=== PATIENT | male | born 1980 | race Hispanic/Latino ===

== ENCOUNTER 2017-05-16 19:39 | Emergency (ER) | payer MEDICAID, OTHER ==
[2017-05-16 19:39] VITALS: BMI 23.8
[2017-05-16 19:55] VITALS: TEMP 98.2
[2017-05-16] MEDS ORDERED: Sodium Chloride 0.9% 1,000 ML IV ONE (19:57)
[2017-05-16 20:05] LABS: BASO % 0.4 % (0.0-2.0); EOS # 0.1 K/uL (0.0-0.7); EOS % 0.6 % (0.0-4.0); HEMATOCRIT 46.2 % (35.0-51.0); LYMPH # 1.4 K/uL (1.0-4.3); LYMPH % 13.8 % (20.0-40.0); MEAN CELL VOLUME 87.4 fL (80.0-94.0); MEAN CORPUSCULAR HEMOGLOBIN 29.6 pg (27.0-31.0); MEAN CORPUSCULAR HGB CONC 33.9 g/dL (33.0-37.0); MEAN PLATELET VOLUME 9.2 fL (7.2-11.7); MONO # 0.8 K/uL (0.0-0.8); MONO % 7.8 % (0.0-10.0); RED CELL DISTRIBUTION WIDTH 13.3 % (11.5-14.5); WHITE BLOOD COUNT 10.5 K/uL (4.8-10.8)
[2017-05-16 20:27] LABS: CHLORIDE 96 mmol/L (98-107)
[2017-05-16 20:28] LABS: POTASSIUM 3.8 mmol/L (3.6-5.2); SODIUM 133 mmol/L (132-148)
--- NOTE | 2017-05-16 20:28 | C.PDOC ---
History Of Present Illness 36 year old male presents to the ER with a complaint of sharp epigastric pain since yesterday, associated with nausea, vomiting, and diarrhea. Patient has a Hx of IVDA, but has been clean for 3 years. However he expresses concern for having hepatitis and would like to be checked. Patient denies blood in vomit or diarrhea, chest pain, SOB, palpitations, fever, dysuria/hematuria.. Time Seen by Provider: 05/16/17 19:45 Chief Complaint (Nursing): Abdominal Pain History Per: Patient History/Exam Limitations: no limitations Onset/Duration Of Symptoms: Days Current Symptoms Are (Timing): Still Present Location Of Pain/Discomfort: Epigastric Radiation Of Pain To:: None Quality Of Discomfort: Sharp, "Pain" Associated Symptoms: Nausea, Vomiting, Diarrhea. denies: Fever, Chest Pain, Urinary Symptoms, Other (SOB) Exacerbating Factors: None Alleviating Factors: None Past Medical History Reviewed: Historical Data, Nursing Documentation, Vital Signs Vital Signs: Last Vital Signs Temp 98.2 F 05/16/17 19:51 Pulse 83 05/16/17 21:54 Resp 16 05/16/17 21:54 BP 129/85 05/16/17 21:54 Pulse Ox 98 05/16/17 21:54 - Medical History PMH: No Chronic Diseases Surgical History: No Surg Hx - [facility] Procedures APPLICATION OF SPLINT (08/15/14) INJECT/INFUSE NEC (08/03/14) OTHER SKIN & SUBQ I D (11/07/14) REMOV EXT IMMOBILIZATION (10/17/14) Family History: States: No Known Family Hx - Social History Hx Tobacco Use: Yes Hx Alcohol Use: No Hx Substance Use: No (former) - Immunization History Hx Tetanus Toxoid Vaccination: No Hx Influenza Vaccination: No Hx Pneumococcal Vaccination: No Review Of Systems Except As Marked, All Systems Reviewed And Found Negative. Constitutional: Negative for: Fever, Chills Cardiovascular: Negative for: Chest Pain, Palpitations Respiratory: Negative for: Shortness of Breath Gastrointestinal: Positive for: Nausea, Vomiting, Abdominal Pain, Diarrhea Genitourinary: Negative for: Dysuria, Hematuria Physical Exam - Physical Exam Appears: Well, Non-toxic, No Acute Distress Skin: Normal Color, Warm, Dry Eye(s): bilateral: Normal Inspection Oral Mucosa: Moist Cardiovascular: Rhythm Regular Respiratory: Normal Breath Sounds, No Rales, No Rhonchi, No Wheezing Gastrointestinal/Abdominal: Bowel Sounds, Soft, Tenderness (Mild epigastric TTP) , No Guarding, No Rebound, No Other ((-) Choudhury's, (-) McBurney's) Back: No CVA Tenderness Neurological/Psych: Oriented x3 ED Course And Treatment - Laboratory Results Result Diagrams: 05/16/17 20:02 05/16/17 20:02 O2 Sat by Pulse Oximetry: 100 (Room air) Pulse Ox Interpretation: Normal Progress Note: Blood work, UA ordered and reviewed. Patient given IV NS bolus, IV pepcid. Reevaluation Time: 21:45 Reassessment Condition: Improved (Patient reassessed, is resting comfortably and states he feels better. On exam, abdomen is soft and nontender. Blood work shows mild elevation in lipase, otherwise was WNL. Patient denies alcohol abuse or h/o gallstones. (-) Choudhury's on exam. Patient states he feels well and would like to be discharged home. Rxs given for zofran, pepcid and tylenol. Patient instructed to drink plenty of fluids and follow up with GI within 1 week. He understands he should return to ED immediately if his symptoms return/ worsen.) Disposition Counseled Patient/Family Regarding: Studies Performed, Diagnosis, Need For Followup, Rx Given - Disposition Referrals: [facility] [Outside] Alexandra CHARLES,MD Gisela [Medical Doctor] - Disposition: HOME/ ROUTINE Disposition Time: 21:45 Condition: STABLE Additional Instructions: FOLLOW UP IN MEDICAL CLINIC IN 1-2 DAYS, AND WITH GI SPECIALIST WITHIN 1 WEEK DRINK PLENTY OF FLUIDS, AND EAT BLAND DIET RETURN TO ER IMMEDIATELY IF YOUR SYMPTOMS WORSEN Prescriptions: Acetaminophen [Tylenol 325mg tab] 650 mg PO Q6 PRN #30 tab PRN Reason: pain/fever Famotidine [Pepcid] 20 mg PO BID PRN #15 tab PRN Reason: abdominal Ondansetron [Zofran Odt] 4 mg PO Q8 PRN #12 odt PRN Reason: Nausea/Vomiting Instructions: Epigastric Pain (ED) Forms: [facility] (Macedonian) Print Language: ESTONIAN - POA Present On Arrival: None - Clinical Impression Clinical Impression: Elevated lipase, Epigastric abdominal pain - Scribe Statement The provider has reviewed the documentation as recorded by the Scribeula Keenan All medical record entries made by the Lupeibeula were at my direction and personally dictated by me. I have reviewed the chart and agree that the record accurately reflects my personal performance of the history, physical exam, medical decision making, and the department course for this patient. I have also personally directed, reviewed, and agree with the discharge instructions and disposition.
[2017-05-16 20:31] LABS: ALB/GLOB RATIO 1.1 (1.0-2.1); ALKALINE PHOSPHATASE 75 U/L (38-126); ALT/SGPT 44 U/L (21-72); AST/SGOT 23 U/L (17-59); BILIRUBIN,TOTAL 0.7 mg/dL (0.2-1.3); BLOOD UREA NITROGEN 13 mg/dL (9-20); CARBON DIOXIDE 27 mmol/L (22-30); GFR AFRICAN-AMERICAN > 60; GLUCOSE,RANDOM 79 mg/dL (75-110); TOTAL PROTEIN 8.4 g/dL (6.3-8.3)
[2017-05-16 21:55] VITALS: BP 129/85; PULSE 83; RESP 16
[2017-05-17 03:21] VITALS: O2SAT 100
== END 2017-05-16 21:54 | disposition home or self-care (01) ==
LOC: C.ER 19:39
DX: R10.13 Epigastric pain (principal); R74.8 Abnormal levels of other serum enzymes
CPT/HCPCS: 80053; 80074; 83690; 85025; 96361; 96374; 99284; J7040

== ENCOUNTER 2018-05-04 15:56 | Emergency (ER) | payer BC, MEDICAID, OTHER ==
[2018-05-04 15:57] VITALS: BMI 23.8
[2018-05-04 16:02] VITALS: RESP 20
[2018-05-04] MEDS ORDERED: MethylPREDNISolone 40 mg Vial IVP STA (16:36)
[2018-05-04] MEDS ORDERED: DiphenhydrAMINE 50 mg/ml Inj IVP STA (16:36)
[2018-05-04 16:56] LABS: BASO % 0.1 % (0.0-2.0); EOS # 0.3 K/uL (0.0-0.7); EOS % 3.1 % (0.0-4.0); HEMOGLOBIN 14.9 g/dL (12.0-18.0); LYMPH # 1.6 K/uL (1.0-4.3); LYMPH % 15.8 % (20.0-40.0); MEAN CELL VOLUME 87.3 fL (80.0-94.0); MEAN CORPUSCULAR HEMOGLOBIN 29.6 pg (27.0-31.0); MEAN CORPUSCULAR HGB CONC 33.9 g/dL (33.0-37.0); MEAN PLATELET VOLUME 9.2 fL (7.2-11.7); MONO # 0.9 K/uL (0.0-0.8); MONO % 9.1 % (0.0-10.0); NEUT # 7.2 K/uL (1.8-7.0); NEUT % 71.9 % (50.0-75.0); RBC 5.03 Mil/uL (4.40-5.90); RED CELL DISTRIBUTION WIDTH 13.5 % (11.5-14.5)
[2018-05-04] MEDS ORDERED: DiphenhydrAMINE 50 mg/ml Inj ONE (17:02)
[2018-05-04] MEDS ORDERED: ceFAZolin 1 MG in Sodium Chloride 0.9% 50 ML IVPB STA (17:15)
[2018-05-04 17:19] LABS: ALB/GLOB RATIO 1.5 (1.0-2.1); ALBUMIN 4.1 g/dL (3.5-5.0); ALT/SGPT 31 U/L (21-72); AST/SGOT 20 U/L (17-59); BLOOD UREA NITROGEN 16 mg/dL (9-20); CALCIUM 8.9 mg/dl (8.6-10.4); GFR NON-AFRICAN AMERICAN > 60
[2018-05-04] MEDS ORDERED: ceFAZolin IV 1 gm in Dextrose 1 GM/50 ML BAG IVPB ONE (17:24)
--- NOTE | 2018-05-04 17:29 | C.PDOC ---
History Of Present Illness 37 year old male patient presents to the ER with c/o itching, swelling and warmth to his upper right arm. Patient reports this appeared after a bee stung him. Patient denies fever, SOB, wheezing and chills. Time Seen by Provider: 05/04/18 16:11 Chief Complaint (Nursing): Allergic Reaction History Per: Patient History/Exam Limitations: no limitations Onset/Duration Of Symptoms: Hrs Current Symptoms Are (Timing): Still Present Associated Symptoms: Swelling, Itching, Redness Past Medical History Reviewed: Historical Data, Nursing Documentation, Vital Signs Vital Signs: Last Vital Signs Temp 97.8 F 05/04/18 16:00 Pulse 112 H 05/04/18 16:00 Resp 20 05/04/18 16:00 BP 118/75 05/04/18 16:00 Pulse Ox 96 05/04/18 16:00 - [facility] Procedures APPLICATION OF SPLINT (08/15/14) INJECT/INFUSE NEC (08/03/14) OTHER SKIN & SUBQ I D (11/07/14) REMOV EXT IMMOBILIZATION (10/17/14) Family History: States: Unknown Family Hx - Social History Hx Tobacco Use: Yes Hx Alcohol Use: No Hx Substance Use: Yes (not currently) - Immunization History Hx Tetanus Toxoid Vaccination: No Hx Influenza Vaccination: No Hx Pneumococcal Vaccination: No Review Of Systems Constitutional: Negative for: Fever, Chills ENT: Negative for: Mouth Pain, Mouth Swelling, Throat Pain, Throat Swelling Respiratory: Negative for: Shortness of Breath, Wheezing Musculoskeletal: Positive for: Other (itching, swelling and warmth to the right upper arm ) Physical Exam - Physical Exam Appears: Well, Non-toxic, No Acute Distress Skin: Dry, No Rash, Other (erythema, warm and markedly swollen anterior right upper arm extending to the proximal forearm iwth erythema and warmth ) Eye(s): bilateral: Normal Inspection, PERRL, EOMI Nose: Normal Oral Mucosa: Moist Tongue: No Swelling Lips: No Swelling Throat: Normal, No Mass Neck: Normal ROM, Supple Chest: Symmetrical Cardiovascular: Rhythm Regular Respiratory: Normal Breath Sounds, No Rales, No Rhonchi, No Wheezing Extremity: Normal ROM (able to flex and extend at right elbow), Swelling Pulses: Right Radial: Normal ED Course And Treatment - Laboratory Results Result Diagrams: 05/04/18 16:51 05/04/18 16:51 O2 Sat by Pulse Oximetry: 96 (RA) Pulse Ox Interpretation: Normal Medical Decision Making Medical Decision Making: Impression: erythema, warm, markedly swollen right anterior upper arm extending to the anterior proximal forearm. Plans: -- CMP -- blood work -- Ancef -- benadryl -- pepcid -- solu-medrol -- blood cx 18:[address] Flores, will d/c on steroids and antibiotics. erythema marked by pen. pt advised to keep arm elevated and return for wound check in 1-2 days. Disposition Counseled Patient/Family Regarding: Studies Performed, Diagnosis, Need For F ollowup, Rx Given - Disposition Disposition: HOME/ ROUTINE Disposition Time: 18:15 Condition: GOOD Additional Instructions: Please take antibiotics and steroids as prescribed. Keep right arm elevated whenever possible and recommend cold compresses several times a day to help decrease swelling. If swelling worsens. if redness increases beyond line drawn on skin, if any red streaks on arm, if you develop a fever, if you are unable to bend arm at elbow, return to ER immediately; otherwise, return in 1-2 days for wound check. Tylenol or Motrin for pain if needed. Prescriptions: Cephalexin [cephalexin] 500 mg PO Q6 #28 cap DiphenhydrAMINE [Benadryl] 25 mg PO Q6 #40 cap Famotidine [Acid Filer Helper] 20 mg PO DAILY #14 tablet predniSONE [predniSONE Tab] 40 mg PO DAILY #10 tab Instructions: Hives, Cellulitis (Skin Infection), Adult (DC) Forms: [facility] (Sinhala), General Discharge Instructions - Clinical Impression Clinical Impression: Cellulitis of right upper arm, Allergic reaction to insect bite - PA / DINING ROOM TABLES SET UP ATTENDANT / Resident Statement / has reviewed & agrees with the documentation as recorded. - Scribe Statement The provider has reviewed the documentation as recorded by the Kassandra Miller Do All medical record entries made by the Kassandra were at my direction and personally dictated by me. I have reviewed the chart and agree that the record accurately reflects my personal performance of the history, physical exam, medical decision making, and the department course for this patient. I have also personally directed, reviewed, and agree with the discharge instructions and disposition.
[2018-05-04 17:48] VITALS: BP 133/83; PULSE 92; TEMP 98.6
[2018-05-04 18:15] VITALS: O2SAT 96
== END 2018-05-04 18:27 | disposition home or self-care (01) ==
LOC: C.ER 15:56
DX: L03.113 Cellulitis of right upper limb (principal); T78.40XA Allergy, unspecified, initial encounter; W57.XXXA Bitten or stung by nonvenomous insect and other nonvenomous arthropods, initial encounter
CPT/HCPCS: 80053; 85025; 87040; 96365; 96375; 99284; J0690; J1200; J2920